=== PATIENT | male | born 1985 | race Caucasian/White ===

== ENCOUNTER 2023-01-19 04:08 | Emergency (ER) | payer SELFPAY ==
--- NOTE | ~2023-01-19 | XR_ITS ---
Portable chest x-ray Comparison: None Clinical History: Cough Findings: Lungs are clear, without focal consolidation or pleural effusion. Cardiomediastinal silho uette is stable. Bones and soft tissues are unremarkable. Impression: Normal chest. Reviewed, dictated and finalized at location . [facility] Impression: Normal chest.
--- NOTE | 2023-01-19 04:16 | ECG_ITS ---
Measurements Intervals [place] Rate: 80 P: 76 ID: [id number] QRS: 38 QRSD: 87 T: 38 QT: 364 QTc: 422 Interpretive Statements SINUS RHYTHM POSSIBLE RIGHT ATRIAL ENLARGEMENT POSSIBLE LEFT ATRIAL ENLARGEMENT BORDERLINE ECG NO PREVIOUS ECG AVAILABLE FOR COMPARISON Electronically Signed On 01-19-2023 6:34:08 KEY ACCOUNT EXECUTIVE by Missael Nj D.O.
[2023-01-19 04:23] VITALS: BP 111/71; PULSE 94; RESP 16; TEMP 36.4; O2SAT 99
[2023-01-19 04:26] LABS: Basophils Percent Auto 0.5 % (0.2-1.2); Eosinophils Absolute Auto 0.3 K/mm3 (0-0.3); Hematocrit 46.6 % (42.0-52.0); Hemoglobin 16.1 g/dL (14.0-18.0); Immature Granulocyte Absolute 0.03 K/mm3 (0.00-0.031); Immature Granulocyte Percent A 0.4 % (0-0.5); Lymphocytes Absolute Auto 2.25 K/mm3 (0.9-3.2); Lymphocytes Percent Auto 27.1 % (18.3-44.2); Mean Corpuscular HGB Conc 34.5 g/dl (32-36); Mean Corpuscular Hemoglobin 32.7 pg (26-34); Mean Corpuscular Volume 94.5 fl (80-100); Monocytes Absolute Auto 0.6 K/mm3 (0.1-0.6); Monocytes Percent Auto 7.5 % (2.6-8.5); Neutrophils Absolute Auto 5.1 K/mm3 (1.3-6.7); Neutrophils Percent Auto 61.5 % (45.5-73.1); Platelet Count Result 205 k/mm3 (150-375); Red Blood Count 4.93 M/mm3 (4.6-6.20); Red Cell Distribution Width 12.8 % (11.5-14.5); White Blood Count 8.3 K/mm3 (4.5-10.0)
--- NOTE | 2023-01-19 04:32 | PC.NURSE ---
Poison control notified @[id number]. Poison controls only recommendation is check pts GI labs , and watch for vomiting.
[2023-01-19 04:35] LABS: Acetaminophen < 10 ug/mL (10-30); Ethanol < 10 mg/dL (<10); Salicylate < 1.0 mg/dL (2-20)
[2023-01-19] MEDS: TETANUS,DIPHTHERIA,AC PERTUSSIS ADULT (0.5 ML) BOOSTRIX IM (04:36)
[2023-01-19] MEDS: SODIUM CHLORIDE 0.9% IV 1,000 ML 999 ML IV CONT (04:37)
[2023-01-19 04:47] LABS: Alanine Aminotransferase 19 U/L (6-50); Albumin Level 4.2 g/dL (3.5-5.1); Alkaline Phosphatase 96 U/L (38-126); Anion Gap 8 mmol/L (8-16); Aspartate Amino Transferase 33 U/L (17-59); Bilirubin,Total 0.9 mg/dL (0.2-1.3); Blood Urea Nitrogen 18 mg/dL (9-20); Carbon Dioxide 23 mmol/L (22-30); Chloride 107 mmol/L (98-107); Estimated CRCL calculation 115 ml/min; Estimated Glomerular Filt Rate > 60; Glucose 138 mg/dL (65-110); Potassium 3.7 mmol/L (3.4-5.0); Sodium 138 mmol/L (137-145)
--- NOTE | 2023-01-19 05:01 | ED.GENADULT ---
HPI - General Adult General Chief complaint: Psychiatric Symptoms <Maximiliano Urban MD - Last Filed: 01/19/23 20:29> Stated complaint: SI <Maximiliano Urban MD - Last Filed: 01/19/23 20:29> Time Seen by Provider: 01/19/23 04:11 <Maximiliano Urban MD - Last Filed: 01/19/23 20:29> History of Present Illness HPI narrative: patient is a 37-year-old gentleman who presents to the emergency department with chief complaint of suicidal ideation. Patient reports that he has been wanting to harm himself and has been under lot of stress the patient states that he has been hearing voices of feels as though people are not trusting him patient reports that this evening he took a kitchen knife in cut his left wrist and also touched his neck with a blade the patient reports that he tried to eat 4-5 tied pods patient denies shortness of breath denies chest pain patient reports that he has been abusing crack cocaine and Adderall the patient reports that it has been a long time since he has used crack and has been on hold 2 weeks since he has used crack <Maximiliano Urban MD - Last Filed: 01/19/23 20:29> Related Data Allergies/adverse reactions: Allergies Allergy/AdvReac Type Severity Reaction Status Date / Time No Known Allergies Allergy Mild Verified 01/19/23 04:36 <Maximiliano Urban MD - Last Filed: 01/19/23 20:29> Review of Systems Review of Systems: A 10 system review of systems was completed on the patient and is negative except for what is stated in the HPI. Nursing and ancillary documentation was reviewed. <Maximiliano Urban MD - Last Filed: 01/19/23 20:29> [facility] Social History Social History: Social History Substance use type: marijuana and crack/cocaine <Maximiliano Urban MD - Last Filed: 01/19/23 20:29> Course Reevaluation(s) Reevaluation #1: PATIENT IS MEDICALLY CLEARED FOR PSYCH EVALUATION <Davidson Prince MD - Last Filed: 01/19/23 18:05> Date: 01/19/23 <Davidson Prince MD - Last Filed: 01/19/23 18:05> Time: 09:11 <Davidson Prince MD - Last Filed: 01/19/23 18:05> Reevaluation #2: PATIENT LYING DOWN COMFORTABLE, ASYMPTOMATIC. WAITING FOR TRANSPORTATION <Davidson Prince MD - Last Filed: 01/19/23 18:05> Date: 01/19/23 <Davidson Prince MD - Last Filed: 01/19/23 18:05> Time: 18:02 <Davidson Prince MD - Last Filed: 01/19/23 18:05> Vital Signs Vital signs: Vital Signs Temperature 36.4 C 01/19/23 04:23 Pulse Rate 94 01/19/23 04:23 Respiratory Rate 16 01/19/23 04:23 Blood Pressure 111/71 01/19/23 04:23 Pulse Oximetry 99 01/19/23 04:23 Oxygen Delivery Room Air 01/19/23 04:23 Temperature 36.7 C 01/19/23 17:28 Pulse Rate 74 01/19/23 17:28 Respiratory Rate 16 01/19/23 17:28 Blood Pressure 118/68 01/19/23 17:28 Pulse Oximetry 100 01/19/23 17:28 Oxygen Delivery Room Air 01/19/23 04:23 <Maximiliano Urban MD - Last Filed: 01/19/23 20:29> Vital Signs Temperature 36.4 C 01/19/23 04:23 Pulse Rate 94 01/19/23 04:23 Respiratory Rate 16 01/19/23 04:23 Blood Pressure 111/71 01/19/23 04:23 Pulse Oximetry 99 01/19/23 04:23 Oxygen Delivery Room Air 01/19/23 04:23 Temperature 36.7 C 01/19/23 17:28 Pulse Rate 74 01/19/23 17:28 Respiratory Rate 16 01/19/23 17:28 Blood Pressure 118/68 01/19/23 17:28 Pulse Oximetry 100 01/19/23 17:28 Oxygen Delivery Room Air 01/19/23 04:23 <Davidson Prince MD - Last Filed: 01/19/23 18:05> Procedures Laceration Laceration 1: Date: 01/19/23 <Maximiliano Urban MD - Last Filed: 01/19/23 20:29> Time: 05:28 <Maximiliano Urban MD - Last Filed: 01/19/23 20:29> Site: upper extremity <Maximiliano Urban MD - Last Filed: 01/19/23 20:29> Side (If appl
[2023-01-19 05:02] LABS: Influenza A QL RT-PCR Negative (Negative); Influenza B QL RT-PCR Negative (Negative); SARS-CoV-2 RNA PCR Negative (Negative)
[2023-01-19 05:16] LABS: Appearance Urine Clear (Clear); Bacteria Urine None Seen /hpf; Bilirubin Urine Negative (Negative); Blood Urine Negative (Negative); Color Urine Yellow (Yellow); Glucose Urine UA Negative (Negative); Ketones Urine Negative (Negative); Leukocyte Esterase Ur Negative LEU/UL (Negative); Nitrate Urine Negative (Negative); Non Pathogenic Casts 0-2; Protein Urine Trace mg/dL (Negative); RBC Urine 0-2 /hpf (0-2); Specific Grav Ur 1.022 (1.001-1.035); Squamous Epithelial Cell Urine None seen /hpf (Few); WBC Urine 0-5 /hpf
[2023-01-19 05:17] LABS: Thyroid Stimulating Hormone 0.697 uIU/mL (0.465-4.680)
[2023-01-19 05:19] LABS: Add Urine Microscopic? YES
[2023-01-19 05:27] LABS: Amphetamine Screen Urine Negative (Negative); Barbiturate Screen Urine Negative (Negative); Benzodiazepines Screen Urine Negative (Negative); Cannabinoid Screen Urine Positive (Negative); Cocaine Screen Urine Negative (Negative); Methadone Screen Urine Negative (Negative); Opiate Screen Urine Negative (Negative); Phencyclidine Screen Urine Negative (Negative)
--- NOTE | 2023-01-19 07:11 | PC.NURSE ---
poison control case #[id number]. Pt has been cleared by poison control at this time.
--- NOTE | 2023-01-19 08:13 | PC.NURSE ---
case closed by poison control, reference number [id number]
[2023-01-19 09:13] VITALS: BP 110/70; PULSE 77; RESP 16; TEMP 36.6; O2SAT 100
--- NOTE | 2023-01-19 11:04 | PC.NURSE ---
attempted to call report and asked to call back at [phone]
[2023-01-19 15:00] VITALS: BP 112/68; PULSE 76; RESP 16; TEMP 36.7; O2SAT 100
[2023-01-19 17:28] VITALS: BP 118/68; PULSE 74; RESP 16; TEMP 36.7; O2SAT 100
--- NOTE | 2023-01-19 18:42 | PC.NURSE ---
report called to Sravanthi at [facility]
== END 2023-01-19 20:16 ==
PROVIDERS: Emergency Medicine; Emergency Provider Emergency Medicine
DX: S51.812A Laceration without foreign body of left forearm, initial encounter (principal); Z23 Encounter for immunization; Z11.52 Encounter for screening for COVID-19; X78.1XXA Intentional self-harm by knife, initial encounter
CPT/HCPCS: 12002; 36415; 71045; 80053; 80307; 81001; 84443; 85025; 87636; 90471; 90715; 93005; 96360; 99285; J7030